=== PATIENT | female | born 1995 | race Two or more races ===

== ENCOUNTER 2025-09-29 02:55 | Emergency (ER) | payer OTHER ==
[~2025-09-29] VITALS: Ht 160 cm; Wt 64.0 kg
--- NOTE | 2025-09-29 03:19 | ED.PDOC ---
History of Present Illness HPI Comments 30-year-old female with a history of asthma, presents with spouse for chief complaint of nonradiating, substernal chest tightness and shortness of breath. Patient presenting with sudden, unprovoked, atraumatic onset of symptoms 2 hours prior to ED arrival. She comments on having associated chills and vomiting twice this morning, nonbloody nonbilious. Pain is reproducible with pressure applied to her epigastric area. Patient states she frequently spicy foods, however is unsure if her symptoms are associated with eating. She denies any cardiac history or further acute symptoms. She denies any fever, cough urinary symptoms, sick contacts. Chief Complaint: Chest Pain Time Seen by MD: 03:00 Reviewed Notes: Nurses Notes, Medications, Allergies Allergies: Coded Allergies: NO KNOWN ALLERGIES (Unverified , 09/29/25) Information Source: Patient Mode of Arrival: Ambulatory Severity: Moderate Timing: Hours Duration: Since onset Prehospital treatment: None Past Medical History PAST MEDICAL HISTORY: Asthma Surgical History: Denies all surgeries BUILDING SERVICE WORKER History: No Pertinent BUILDING SERVICE WORKER History Family History Family History: Reviewed,noncontributory to illness, No family hx of Cancer, No family hx of DM, No family hx of Heart claribel, No family hx of HTN, No family hx ofKidney claribel, No family hx of Liver claribel, No family hx of Lung claribel, No family hx of Stroke Social History Smoker: Non-Smoker Alcohol: Denies ETOH Use Drugs: Denies Drug Use Lives In: Home All Other Systems: Reviewed and Negative (Comprehensive review of systems are negative unless otherwise stated in HPI) Physical Exam General Appearance: No Apparent Distress, Normal HEENT: Normal ENT Inspection, Pharynx Normal, TMs Normal Neck: Full Range of Motion, Non-Tender, Normal, Normal Inspection Respiratory: Chest Non-Tender, Lungs Clear, No Accessory Muscle Use, No Respiratory Distress, Normal Breath Sounds Cardiovascular: No Edema, No JVD, No Murmur, No Gallop, Normal Peripheral Pulses, Regular Rate/Rhythm Breast Exam: Deferred Gastrointestinal: No Organomegaly, Non Tender, No Pulsatile Mass, Normal Bowel Sounds, Soft Genitalia: Deferred Pelvic: Deferred Rectal: Deferred Extremities: No calf tenderness, Normal capillary refill, Normal inspection, Normal range of motion, Non-tender, No pedal edema Musculoskeletal : Apperance: Normal Neurologic: Alert, 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 Was a procedure done?: No EKG EKG : Pulse Rate (adult): 58 [place]: Normal Cardiac Rhythm: NSR Block: None Hypertrophy: None ST: Normal Differential Dx Considerations may include: gastritis, GERD, anxiety, angina, dehydration, electrolyte imbalance, ACS, URI, PNA, [place], PE, among others X-Ray, Labs, Meds, VS Vital Signs Date Time Temp Pulse Resp B/P (MAP) Pulse Ox O2 Delivery O2 Flow Rate FiO2 09/29/25 03:45 54 09/29/25 03:19 58 09/29/25 03:10 98.1 68 20 147/91 (109) 96 98.1 09/29/25 03:04 59 09/29/25 03:00 98.1 68 20 147/91 96 98.1 Lab Test 09/29/25 04:47 09/29/25 03:20 Range/Units Troponin I High Sensitivity Pending < 3 L </=34 ng/L White Blood Count 10.1 4.4-10.8 10^3/uL Red Blood Count 5.02 4.0-5.20 10^6/uL Hemoglobin 14.4 12.2-16.2 g/dL Hematocrit 42.7 36.0-46.0 % Mean Corpuscular Volume 85.0 80.0-100.0 fL Mean Corpuscular Hemoglobin 28.7 28.0-32.0 pg Mean Corpuscular Hemoglobin Concent 33.7 32.0-36.0 g/dL Red Cell Distribution Width 13.7 11.8-14.3 % Platelet Count 293 140-450 10^3/uL Mean Platelet Volume 7.8 6.9-10.8 fL Neutrophils (%) (Auto) 59.5 37.0-80.0 % Lymphocytes (%) (Auto) 29.5 10.0-50.0 % Monocytes (%) (Auto) 8.5 0.0-12.0 % Eosinophils (%) (Auto) 1.4 0.0-7.0 % Basophils (%) (Auto) 1.1 0.0-2.0 % Neutrophils # (Auto) 6.0 1.6-8.6 10 ^3/uL Lymphocytes # (Auto) 3.0 0.4-5.4 10 ^3/uL Monocytes # (Auto) 0.9 0-1.3 10 ^3/uL Eosinophils # (Auto) 0.1 0-0.8 10 ^3/uL Basophils # (Auto) 0.1 0-0.2 10 ^3/uL Nucleated Red Blood Cells 0.1 % Sodium Level 138 136-145 mmol/L Potassium Level 3.6 3.5-5.1 mmol/L Chloride Level 104 98-107 mmol/L Carbon Dioxide Level 23 20-31 mmol/L Anion Gap 11 5-15 Blood Urea Nitrogen 9 9-23 mg/dL Creatinine 0.70 0.550-1.02 mg/dL Glomerular Filtration Rate Calc 120 >90 mL/min BUN/Creatinine Ratio 12.9 10.0-20.0 Serum Glucose 102 74-106 mg/dL Calcium Level 9.5 8.7-10.4 mg/dL B-Type Natriuretic Peptide 12.76 0-100 pg/mL Lipase 33 12-53 U/L Current Medications Medications (Trade) Dose Ordered Sig/Chidi Route Start Time Stop Time Status Last Admin Al Hydrox/Mg Hydrox/Simethicone (Maalox Plus) 30 ml ONCE ONCE PO 09/29/25 03:15 09/29/25 03:16 DC 09/29/25 03:31 [place] [address] Ph: [phone] DIAGNOSTIC IMAGING Diagnostic Imaging Report : [id number] Signed PATIENT: VANDANA MORALES ACCT: [id number] UNIT: [id number] : 1995 LOC: ER ROOM / BED: / AGE / SEX: 30 / F ADM STATUS: REG ER SERVICE [id number] ORDERING PHYSICIAN: AILEEN CHEN MD PROCEDURE(s): CXRP - CHEST PORTABLE REASON: chest pain ORDER NUMBER(s): [id number], ACCESSION NUMBER(s): [id number] CHEST RADIOGRAPH Indication: chest pain Technique: Single frontal view of the chest was obtained COMPARISON: None FINDINGS: Lines and Tubes: None Lungs: Clear Pleura: No effusion. No pneumothorax. Cardiomediastinal contours: Unremarkable Bones: Unremarkable IMPRESSION: 1. No acute disease. ATED BY: SAUL KRAUS MD DICTATED DATE/TIME: 09/29/25504 SIGNED BY: SAUL KRAUS MD SIGNED DATE/TIME: 09/29/25504 CC: X-Ray, Labs, Meds, VS Comment Patient presenting with atypical chest pain, shortness of breath, nausea, vomiting after eating spicy food. Vital signs stable and exam unremarkable besides mild epigastric tenderness. No concern for cardiac etiology of patient's symptoms at this time as HEART score is 0. Lab work (CBC, BMP) to evaluate for evidence of severe anemia, electrolyte abnormality including hypokalemia, hyperkalemia, hypernatremia, hyponatremia, hyperglycemia, hypoglycemia, etc. EKG and troponin to evaluate for evidence of arrhythmia, ACS, AMI Chest x-ray to evaluate for pneumonia, pneumothorax with volume overload. GI cocktail Re-evaluate Social determinant surveillance affecting care: Social determinants of health that will affect the patient's care: Poor access to outpatient care/followup (provided outpatient resources) Time of 1ST Reevaluation: 03:50 Reevaluation 1ST: Unchanged Patient Education/Counseling: Diagnosis, Treatment, Need For Follow Up Family Education/Counseling: Diagnosis, Treatment, Need For Follow Up SEPSIS Sepsis Screen Date sepsis recognized/suspect: Sep 29, 2025 Time Sepsis recognized/suspect: 0300 Recent Procedure: No On Antibiotic Therapy: No Respiratory Rate >20: No Heart Rate >90: No Temp<36 C (96.8 F) or >38.3 C: No SBP <90 or MAP <65 mmHG: No New Acute Mental Status Change: No Is the patient on CPAP, BIPAP,: No Physician Orders Chest Portable (09/29/25 03:09) Troponin-I Hs (09/29/25 04:09) Troponin-I Hs (09/29/25 06:09) Electrocardigram (09/29/25 04:26) Electrocardigram (09/29/25 06:26) Vital Signs Date Time Temp Pulse Resp B/P (MAP) Pulse Ox O2 Delivery O2 Flow Rate FiO2 09/29/25 03:45 54 09/29/25 03:19 58 09/29/25 03:10 98.1 68 20 147/91 (109) 96 98.1 09/29/25 03:04 59 09/29/25 03:00 98.1 68 20 147/91 96 98.1 Laboratory Tests Test 09/29/25 03:20 White Blood Count 10.1 10^3/uL (4.4-10.8) Medications Medications Dose Ordered Sig/Chidi Route Start Time Stop Time Status Last Admin Dose Admin Al Hydrox/Mg Hydrox/Simethicone 30 ml ONCE ONCE PO 09/29/25 03:15 09/29/25 03:16 DC 09/29/25 03:31 Departure 1 Departure Time of Disposition: 05:27 (On reassessment, patient's symptoms improved. Labs and imaging unremarkable. EKG nonischemic and troponin negative. Symptoms most consistent with acute gastritis. Will discharge with p.o. Maalox. Given strict return precautions and PMD follow-up.) Impression: Primary Impression: Acute chest pain Additional Impressions: Acute dyspnea Acute nausea with nonbilious vomiting Acute gastritis Disposition: HOME / SELF CARE / HOMELESS Condition: Stable e-Prescriptions Calcium Carbonate-Simethicone (Maalox Advanced Maximum S) 1 Chw Chw 1 CHW PO TIDPRN PRN for 7 Days, #20 TAB.CHEW Prov: AILEEN CHEN MD 09/29/25 Discharged With: Self Critical Care Note Critical Care Time?: No Stability Stability form required: No Heart Score Heart Score: Heart Score Response (Comments) Value History Slightly Suspicious 0 EKG Normal 0 Age <45 0 Risk Factors No known risk factors 0 Troponin Normal limit 0 Total 0 I personally scribed for AILEEN CHEN MD ([email or web address]) on 09/29/25 at 03:19. Electronically submitted by Jose Ham ([email or web address]). I personally scribed for AILEEN CHEN MD ([email or web address]) on 09/29/25 at 05:13. Electronically submitted by Jose Ham [email or web address]). AILEEN CHEN MD Sep 29, 2025 03:19
[2025-09-29] MEDS: MAALOX PLUS or MAALOX 30 ML PO ONE (03:31)
[2025-09-29 03:38] LABS: Hematocrit 42.7 % (36.0-46.0); Hemoglobin 14.4 g/dL (12.2-16.2); Mean Corpuscular Hemoglobin 28.7 pg (28.0-32.0); Mean Corpuscular Volume 85.0 fL (80.0-100.0); Nucleated Red Blood Cells % 0.1 %
[2025-09-29 03:56] LABS: Chloride 104 mmol/L (98-107); Potassium 3.6 mmol/L (3.5-5.1); Sodium 138 mmol/L (136-145)
[2025-09-29 03:57] LABS: Anion Gap 11 (5-15); Calcium 9.5 mg/dL (8.7-10.4); Carbon Dioxide 23 mmol/L (20-31)
[2025-09-29 04:02] LABS: BUN/Creatinine Ratio 12.9 (10.0-20.0); Blood Urea Nitrogen 9 mg/dL (9-23); Glucose 102 mg/dL (74-106)
[2025-09-29 04:03] LABS: Lipase 33 U/L (12-53)
--- NOTE | 2025-09-29 04:13 | ECG ---
[facility] Test Date: 2025-09-29 Test Time: 03:45:45 Pat Name: VANDANA MORALES Department: Room: Gender: F Eyeglass Frame Truer: NICOLETTE : 1995 Requested By: AILEEN CHEN Order Number: [id number] Reading MD: Edgar Krishna Measurements Intervals Critz Rate: 54 P: 69 GA: 121 QRS: 65 QRSD: 110 T: 64 QT: 405 QTc: 384 Interpretive Statements Sinus rhythm Probable left atrial enlargement RSR' in V1 or V2, right VCD or RVH Electronically Signed On 09-29-2025 15:08:45 PST by Edgar Krishna Please click the below link to view image of tracing.
--- NOTE | 2025-09-29 05:07 | DVH ---
CHEST RADIOGRAPH Indication: chest pain Technique: Single frontal view of the chest was obtained COMPARISON: None FINDINGS: Lines and Tubes: None Lungs: Clear Pleura: No effusion. No pneumothorax. Cardiomediastinal contours: Unremarkable Bones: Unremarkable IMPRESSION: 1. No acute disease.
[2025-09-29] MEDS ORDERED: CALC100023 PO (05:29)
[2025-09-29 05:47] VITALS: BP 112/68; PULSE 58; RESP 20; TEMP 99.1; O2SAT 97
== END 2025-09-29 06:00 | disposition home or self-care (01) ==
LOC: ER 02:55
DX: R07.89 Other chest pain (principal); R06.00 Dyspnea, unspecified; R11.2 Nausea with vomiting, unspecified; K29.00 Acute gastritis without bleeding; Z79.899 Other long term (current) drug therapy
CPT/HCPCS: 36415; 71045; 80048; 83690; 83880; 84484; 85025; 93005